=== PATIENT | female | born 1950 | race Two or more races ===

== ENCOUNTER 2020-01-06 14:29 | Day surgery (SDC) | payer MEDICARE, MEDICAID ==
[2020-01-06] VITALS (8 sets, daily range): BP systolic 131–180; BP diastolic 65–92
[~2020-01-06] VITALS: Ht 160 cm; Wt 68.2 kg
[2020-01-06] MEDS ORDERED: ATOR20TA66 PO (15:27)
[2020-01-06] MEDS ORDERED: OMEG1CAP13 PO (15:28)
[2020-01-06] MEDS ORDERED: FLUO-167 PO (15:28)
[2020-01-06] MEDS ORDERED: LEVO25TA7 PO (15:29)
[2020-01-06] MEDS ORDERED: LOSA100T57 PO (15:30)
[2020-01-06] MEDS ORDERED: fentaNYL/PF 50MCG/1 ML 2ML syringe ONE (15:32)
[2020-01-06] MEDS ORDERED: MIDAZolam 5mg/5ml vial ONE (15:33)
[2020-01-06] MEDS ORDERED: LIDOcaine Viscous 15ml cup ONE (15:33)
[2020-01-06] MEDS ORDERED: glucagon, human recombinant 1mg kit ONE (15:33)
[2020-01-06] MEDS ORDERED: diphenhydrAMINE 50 mg/ml inj ONE (15:34)
[2020-01-06] MEDS ORDERED: iohexol 300 MG/1 ML 50ml polymer ONE (15:37)
== END 2020-01-06 18:04 | disposition home health service (06) ==
LOC: GI LAB 14:29
PROVIDERS: ATTEND Internal Medicine Gastroenterology
DX: R10.11 Right upper quadrant pain (principal); K80.50 Calculus of bile duct without cholangitis or cholecystitis without obstruction
CPT/HCPCS: 43262; 43264; 74328; C1769; G0500; J1200; J1610; J2250; J3010; J7040; Q9967; 99152; 99153; A4620